=== PATIENT | male | born 1960 | race Caucasian/White ===

== ENCOUNTER → 2020-04-06 | Outpatient (CLI) | payer OTHER ==
--- NOTE | 2020-04-06 09:46 | US ---
EXAMINATION TYPE: US kidneys/renal and bladder DATE OF EXAM: 04/06/2020 COMPARISON: NONE CLINICAL HISTORY: 60-year-old male R30.0 Dysuria R33.9 Urinary retention. Dysuria, retention of urine TECHNIQUE: Multiple sonographic images of the kidneys and bladder are obtained. FINDINGS: EXAM MEASUREMENTS: Right Kidney: 11.8 x 4.9 x 4.9 cm without hydronephrosis. Left Kidney: 11.2 x 6.5 x 4.7 cm with mild pelviectasis versus an extrarenal pelvis. No gross abnormality of the partially distended bladder. Neither ureteral jet is seen during the cour se of the exam. Post Void Residual Volume: 11.0 mL IMPRESSION: Mild pelviectasis versus an extrarenal pelvis on the left. No tanesha hydronephrosis. Increased postvoid bladder volume of 11 mL falls within acceptable limits.
== END | disposition home or self-care (01) ==
LOC: RADUSWWP 07:29
PROVIDERS: ATTEND Family Medicine
DX: R30.0 Dysuria (principal); R33.9 Retention of urine, unspecified
CPT/HCPCS: 76770

== ENCOUNTER → 2020-05-24 | Day surgery (SDC) | payer OTHER ==
[2020-05-22 09:24] VITALS: BMI 42.0
[~2020-05-24] MED LIST: GLUCAGON 1 MG/ML VIAL ONE; LACTATED RINGERS 1,000 ML IV SCH; PROPOFOL 10 MG/ML 20 ML VIAL IV ONE
[2020-05-24 07:49] VITALS: TEMP 97.2
--- NOTE | 2020-05-24 08:16 | P.GSHP ---
History of Present Illness H&P Date: 05/24/20 Chief Complaint: GI bleed This a 60-year-old male who presents today for colonoscopy. Patient is issue GI bleed. Past Medical History Past Medical History: Hypertension History of Any Multi-Drug Resistant Organisms: None Reported Past Surgical History: No Surgical Hx Reported Past Anesthesia/Blood Transfusion Reactions: No Reported Reaction Additional Past Anesthesia/Blood Transfusion Reaction / Comment(s): FIRST ANESTHETIC Smoking Status: Current every day smoker - Past Family History Mother Family Medical History: No Reported History Medications and Allergies Home Medications Medication Instructions Recorded Confirmed Type Losartan [Cozaar] 50 mg PO DAILY 05/22/20 05/24/20 History Allergies Allergy/AdvReac Type Severity Reaction Status Date / Time No Known Allergies Allergy Verified 05/24/20 07:49 Surgical - Exam Vital Signs Temp Pulse Resp BP Pulse Ox 97.2 F L 108 H 20 151/81 96 05/24/20 07:46 05/24/20 07:46 05/24/20 07:46 05/24/20 07:46 05/24/20 07:46 - General well developed, well nourished, no distress - Eyes PERRL - ENT normal pinna - Neck no masses - Respiratory normal expansion - Cardiovascular Rhythm: regular - Abdomen Abdomen: soft, non tender Assessment and Plan Assessment: GI bleed. We'll perform colonoscopy.
--- NOTE | 2020-05-24 08:34 | P.OP ---
Date of Procedure: 05/24/20 Preoperative Diagnosis: GI bleed Postoperative Diagnosis: Colonic polyps Procedure(s) Performed: Colonoscopy Anesthesia: MAC Surgeon: Bobo Pruitt Pathology: other (, Polyps, colon biopsy) Condition: stable Disposition: PACU Description of Procedure: The patient's placed on the endoscopy table lateral position. He received IV sedation. Digital rectal exam was performed which revealed a few external hemorrhoids. Flexible colonoscope was then placed patient anus and passed throughout the entire colon. The ileocecal valve lesions. The scope was withdrawn. The cecum, ascending and transverse colon appeared normal. In the descending colon was a few scattered diverticula. At the 50 cm sammy there was a polyp was removed with the snare. Scope was withdrawn and then another polyp seen at 35 cm sammy which was withdrawn with the snare. The mucosa appeared inflamed and a biopsy the cold forcep was performed. The scope was withdrawn and another polyp was seen at the 30 cm sammy. Scope removed with snare. Scope was brought back the rectum and this appeared normal. Scope was brought patie nt.
[2020-05-24 08:55] VITALS: BP 120/65; PULSE 95; RESP 16
== END | disposition hospice, home (50) ==
LOC: ORWHC2ENDO 07:18
PROVIDERS: ATTEND Surgery
DX: K63.5 Polyp of colon (principal); K63.89 Other specified diseases of intestine; K64.4 Residual hemorrhoidal skin tags; K57.31 Diverticulosis of large intestine without perforation or abscess with bleeding; K52.9 Noninfective gastroenteritis and colitis, unspecified; I10 Essential (primary) hypertension; F17.200 Nicotine dependence, unspecified, uncomplicated; Z79.899 Other long term (current) drug therapy
CPT/HCPCS: 88305; 45380; 45385; J1610; J2704

== ENCOUNTER 2021-05-30 08:40 | Day surgery (SDC) | payer OTHER ==
[2021-05-27 12:27] VITALS: BMI 39.9
[~2021-05-30 08:40] MED LIST changes: -GLUCAGON 1 MG/ML VIAL ONE; -PROPOFOL 10 MG/ML 20 ML VIAL IV ONE
[2021-05-30 09:07] VITALS: RESP 16; TEMP 97.9
[2021-05-30] MEDS ORDERED: LIDOCAINE 1% INJ 10MG/ML (20 ML MDV) ONE (10:13)
[2021-05-30] MEDS ORDERED: PROPOFOL 10 MG/ML 20 ML VIAL IV ONE (10:13)
--- NOTE | 2021-05-30 10:27 | P.GSHP ---
History of Present Illness H&P Date: 05/30/21 Chief Complaint: History of colon polyps Is a 5-year-old male with previous history of colon polyps. Patient presents today for colonoscopy. Past Medical History Past Medical History: Hypertension History of Any Multi-Drug Resistant Organisms: None Reported Past Surgical History: No Surgical Hx Reported Additional Past Surgical History / Comment(s): colonoscopy Past Anesthesia/Blood Transfusion Reactions: No Reported Reaction Additional Past Anesthesia/Blood Transfusion Reaction / Comment(s): FIRST ANEST HETIC Past Psychological History: No Psychological Hx Reported Smoking Status: Current every day smoker Past Alcohol Use History: Occasional Additional Past Alcohol Use History / Comment(s): DRINKS 4 DRINKS a day 5 DAYS A WEEK Past Drug Use History: None Reported - Past Family History Mother Family Medical History: No Reported History Medications and Allergies Home Medications Medication Instructions Recorded Confirmed Type Losartan [Cozaar] 50 mg PO DAILY 05/22/20 05/30/21 History Allergies Allergy/AdvReac Type Severity Reaction Status Date / Time No Known Allergies Allergy Verified 05/27/21 12:08 Surgical - Exam Vital Signs Temp Pulse Resp BP Pulse Ox 97.9 F 98 16 186/88 97 05/30/21 09:06 05/30/21 09:06 05/30/21 09:06 05/30/21 09:06 05/30/21 09:06 - General well developed, well nourished, no distress - Eyes PERRL - ENT normal pinna - Neck no masses - Respiratory normal expansion - Cardiovascular Rhythm: regular - Abdomen Abdomen: soft, non tender Assessment and Plan Assessment: History of colon polyps. Colonoscopy.
--- NOTE | 2021-05-30 10:43 | P.OP ---
Date of Procedure: 05/30/21 Preoperative Diagnosis: History of colon polyps Postoperative Diagnosis: Transverse colon polyp Procedure(s) Performed: Colonoscopy Anesthesia: MAC Surgeon: Bobo Pruitt Pathology: other (Transverse colon polyp) Condition: stable Disposition: PACU Description of Procedure: Patient's placed on the endoscopy table in the lateral position. He received IV 6. Digital rectal exam was performed which revealed no abnormalities. The flexible colonoscope was then placed patient anus and passed throughout the entire colon. The patient a large amount liquid stool in the right colon which limited the view of the mucosa. There were no large polyps seen. Scope was brought back the transverse colon and a small sessile polyp was removed with a cold forcep. The remaining tracts colon appeared normal. The descending and; had a few scattered diverticuli. Scope was back the rectum and this appeared normal. Scope was withdrawn for patient.
[2021-05-30 11:00] VITALS: BP 123/78; PULSE 76
== END 2021-05-30 11:24 | disposition home or self-care (01) ==
LOC: ORWHC2ENDO 08:40
PROVIDERS: ATTEND Surgery
DX: D12.3 Benign neoplasm of transverse colon (principal); F17.200 Nicotine dependence, unspecified, uncomplicated; I10 Essential (primary) hypertension; E66.01 Morbid (severe) obesity due to excess calories; K57.30 Diverticulosis of large intestine without perforation or abscess without bleeding; Z86.010 Personal history of colon polyps; Z79.899 Other long term (current) drug therapy
CPT/HCPCS: 45380; 88305; J2001; J2704

== ENCOUNTER → 2021-06-11 | Outpatient (CLI) | payer OTHER ==
--- NOTE | 2021-06-11 08:04 | CTL ---
EXAMINATION TYPE: CT Low Dose Lung DATE OF EXAM ORDERED: 06/11/2021 COMPARISON: None HISTORY: . Low Dose CT Lung Screening CT DLP: 140.[address] CTDI: 4.0 mGy IV CONTRAST USED: None. SCREENING VISIT: First visit COMPARISON: None. TECHNIQUE: Low dose computed tomography scan was performed through the chest at 1 millimeter thick se ctions and reconstructed images in the coronal plane at [address] DIAGNOSTIC QUALITY: Satisfactory FINDINGS: LUNG NODULES: Not presentLeft lung: no nodules identified.Right lung: no nodules identified. LUNGS: COPD: Severity: None Fibrosis: Severity:None Lymph nodes: None Other findings: None RIGHT PLEURAL SPACE: Effusion: None Calcification: Yes Thickening: None Pneumothorax: None LEFT PLEURAL SPACE: Effusion: None Calcification: Yes Thickening: None Pneumothorax: None HEART: Heart Size: Mildly enlarged Coronary calcification: Mild Pericardial effusion: None OTHER FINDINGS: Upper abdomen: No significant abnormality Bony thorax: Degenerative changes Supraclavicular region: No significant abnormalityOther: No significant abnormalityI IMPRESSION: No significant pulmonary nodule identified. Calcified pleural plaques suspicious for asbe stos-related pleural disease. FOLLOW UP CT CHEST RECOMMENDATION: Follow-up screening in one year CT LUNG RAD: LUNG RAD CATEGORY 1 negative
== END | disposition home or self-care (01) ==
LOC: RADCTMAIN 06:46
PROVIDERS: ATTEND Family Medicine
DX: Z12.2 Encounter for screening for malignant neoplasm of respiratory organs (principal)
CPT/HCPCS: 71271

== ENCOUNTER → 2022-02-24 | Outpatient (CLI) | payer OTHER ==
--- NOTE | 2022-02-24 09:57 | XR ---
EXAMINATION TYPE: XR thoracic spine 2V DATE OF EXAM: 02/24/2022 CLINICAL HISTORY: pain TECHNIQUE: Frontal, lateral, and swimmer's view of thoracic spine are obtained. COMPARISON: None. FINDINGS: Thoracic spine show satisfactory alignment without evidence of acute fracture or dislocatio n. Vertebral body heights are preserved. Degenerative disc space narrowing and spondylosis moderate in degree at all levels. Visualized ribs are unremarkable. IMPRESSION: No acute fracture or dislocation is seen in the thoracic spine. ICD 10 NO FRACTURE, INIT IAL EVALUATION
--- NOTE | 2022-02-24 10:08 | XR ---
EXAMINATION TYPE: XR lumbar spine 2 or 3V DATE OF EXAM: 02/24/2022 CLINICAL HISTORY: pain TECHNIQUE: Single view the pelvis is submitted. FINDINGS: No evidence for fracture, dislocation or bony lesion. Joint spaces are moderately to mult ilevel degenerative disc space narrowing with severe narrowing at L5-S1. Facet joint arthropathy.. S I joints appear symmetric. IMPRESSION: 1. No acute fracture or dislocation seen. ICD 10 NO FRACTURE, INITIAL EVALUATION
== END | disposition home or self-care (01) ==
LOC: RADXRYALE 09:23
PROVIDERS: ATTEND Nurse Practitioner
DX: M54.50 Low back pain, unspecified (principal); M54.6 Pain in thoracic spine
CPT/HCPCS: 72070; 72100

== ENCOUNTER 2022-04-03 07:54 | Day surgery (SDC) | payer OTHER ==
[2022-04-02 11:13] VITALS: BMI 39.9
[2022-04-03] MEDS ORDERED: LACTATED RINGERS 1,000 ML IV SCH (08:15)
[2022-04-03] MEDS ORDERED: LIDOCAINE 1% (10MG/ML) FOR IV START INTRADERMA PRN (08:15)
[2022-04-03] MEDS: LACTATED RINGERS 1,000 ML IV SCH ×2 (08:31→09:19)
[2022-04-03 08:33] VITALS: TEMP 97
[2022-04-03] MEDS ORDERED: PROPOFOL 10 MG/ML 20 ML VIAL IV ONE (09:22)
--- NOTE | 2022-04-03 09:27 | P.GSHP ---
History of Present Illness H&P Date: 04/03/22 Chief Complaint: History of colon polyps This is a 62-year-old male who presents today for colonoscopy. Patient has a history of colon polyps. Past Medical History Past Medical History: Hypertension Additional Past Medical History / Comment(s): Arthritis History of Any Multi-Drug Resistant Organisms: None Reported Past Surgical History: No Surgical Hx Reported Additional Past Surgical History / Comment(s): Prior colonoscopy Past Anesthesia/Blood Transfusion Reactions: No Reported Reaction Additional Past Anesthesia/Blood Transfusion Reaction / Comment(s): FIRST ANESTHETIC Smoking Status: Current every day smoker - Past Family History Mother Family Medical History: No Reported History Medications and Allergies Home Medications Medication Instructions Recorded Confirmed Type Losartan [Cozaar] 50 mg PO DAILY 05/22/20 04/03/22 History Allergies Allergy/AdvReac Type Severity Reaction Status Date / Time No Known Allergies Allergy Verified 04/03/22 08:29 Surgical - Exam Vital Signs Temp Pulse Resp BP Pulse Ox 97.0 F L 103 H 18 126/80 93 L 04/03/22 08:27 04/03/22 08:27 04/03/22 08:27 04/03/22 08:27 04/03/22 08:27 - General well developed, well nourished, no distress - Eyes PERRL - ENT normal pinna - Neck no masses - Respiratory normal expansion - Cardiovascular Rhythm: regular - Abdomen Abdomen: soft, non tender Assessment and Plan Assessment: History of colon polyps. We'll perform colonoscopy
--- NOTE | 2022-04-03 09:41 | P.OP ---
Date of Procedure: 04/03/22 Preoperative Diagnosis: History of colon polyps Postoperative Diagnosis: Sigmoid colon polyp Procedure(s) Performed: Colonoscopy Anesthesia: MAC Surgeon: Bobo Pruitt Pathology: other (Sigmoid colon polyp) Condition: stable Disposition: PACU Description of Procedure: The patient was placed on the endoscopy table in the lateral position. He received IV sedation. Digital rectal exam was performed. This revealed no ebonized. Flexible colonoscope was then placed patient anus and passed throughout the entire colon. The ileocecal valve was visualized. The cecum, ascending and transverse colon appeared normal. There was a few scattered diverticuli seen in the descending and sigmoid colon. In the; there is a small polyp seen was removed with the cold forcep. Scope brought back the rectum this appeared normal. Scope withdrawn for patient.
[2022-04-03 09:51] VITALS: RESP 16
[2022-04-03 10:05] VITALS: BP 103/72; PULSE 102
== END 2022-04-03 10:14 | disposition home or self-care (01) ==
LOC: ORWHC2ENDO 07:54
PROVIDERS: ATTEND Surgery
DX: K63.5 Polyp of colon (principal); K57.30 Diverticulosis of large intestine without perforation or abscess without bleeding; Z86.010 Personal history of colon polyps; I10 Essential (primary) hypertension; F17.200 Nicotine dependence, unspecified, uncomplicated; F10.10 Alcohol abuse, uncomplicated; Y90.9 Presence of alcohol in blood, level not specified; Z79.899 Other long term (current) drug therapy; M19.90 Unspecified osteoarthritis, unspecified site
CPT/HCPCS: 88305; 45380; J2704

== ENCOUNTER → 2024-09-01 | Outpatient (CLI) | payer MEDICARE, OTHER ==
--- NOTE | 2024-09-01 10:28 | CA ---
Transthoracic Echo Report Name: Sumeet Lawson Age: 64 Gender: M : 1960 Exam Date: 09/01/2024 08:36 Exam Location: [place] [facility] Ht (in): 67 Wt (lb): 290 Ordering Physician: Cristina Goyal DO Attending/Referring Phys: Plan Rep Phuong Ortega RDCS Procedure CPT: Indications: R60.0 LOCALIZED EDEMA Cardiac Hx: Technical Quality: Poor Contrast 1: Total Dose (mL): Contrast 2: Total Dose (mL): MEASUREMENTS (Male / Female) Normal Values 2D ECHO LV Diastolic Diameter PLAX 4.5 cm 4.2 - 5.9 / 3.9 - 5.3 cm LV Systolic Diameter PLAX 3.5 cm IVS Diastolic Thickness 1.8 cm 0.6 - 1.0 / 0.6 - 0.9 cm LVPW Diastolic Thickness 1.8 cm 0.6 - 1.0 / 0.6 - 0.9 cm LV Relative Wall Thickness 0.8 RV Internal Dim ED PLAX 4.1 cm LA Systolic Diameter LX 3.9 cm 3.0 - 4.0 / 2.7 - 3.8 cm LV Diastolic Volume MOD BP 107.8 cm??? 67 - 155 / 56 - 104 cm??? LV Systolic Volume MOD BP 44.4 cm??? 22 - 58 / 19 - 49 cm??? LV Ejection Fraction MOD BP 58.8 % >= 55 % LV Cardiac Index MOD BP 2321.6 cm???/min???m??? LV Diastolic Volume MOD 4C 107.8 cm??? LV Systolic Volume MOD 4C 50.7 cm??? LV Ejection Fraction MOD 4C 53.0 % LV Cardiac Index MOD 4C 2092.4 cm???/min???m??? LV Diastolic Length 4C 7.8 cm LV Systolic Length 4C 6.6 cm LV Diastolic Volume MOD 2C 103.6 cm??? LV Systolic Volume MOD 2C 39.1 cm??? LV Ejection Fraction MOD 2C 62.2 % LV Cardiac Index MOD 2C 2362.0 cm???/min???m??? LV Diastolic Length 2C 8.5 cm LV Systolic Length 2C 6.7 cm LA Volume 45.2 cm??? 18 - 58 / 22 - 52 cm??? LA Volume Index 17.6 cm???/m??? 16 - 28 cm???/m??? M-MODE Aortic Root Diameter MM 3.8 cm AV Cusp Separation MM 2.9 cm DOPPLER AV Peak Velocity 169.8 cm/s AV Peak Gradient 11.5 mmHg MV Area PHT 4.1 cm??? Mitral E Point Velocity 79.3 cm/s Mitral A Point Velocity 89.0 cm/s Mitral E to A Ratio 0.9 MV Deceleration Time 183.5 ms MV E' Velocity 9.0 cm/s Mitral E to MV E' Ratio 8.8 TR Peak Velocity 251.8 cm/s TR Peak Gradient 25.4 mmHg Right Ventricular Systolic Press 30.4 mmHg FINDINGS Left Ventricle Left ventricular ejection fraction is estimated at 55-60 %. Left ventricular cavity size normal. Severe concentric left ventricular hypertrophy. No obvious regional wall motion abnormalities. Right Ventricle Severe right ventricular dilatation. Right ventricular systolic pressure within normal limits. Right Atrium Normal right atrial size. No right atrial thrombus or mass seen. Left Atrium Normal left atrial size. No left atrial thrombus or mass present. Mitral Valve Structurally normal mitral valve. No mitral stenosis, regurgitation or prolapse. Aortic Valve Trileaflet aortic valve. No aortic valve stenosis or regurgitation. Tricuspid Valve Structurally normal tricuspid valve. Mild tricuspid regurgitation. Pulmonic Valve Structurally normal pulmonic valve. No pulmonic regurgitation. Pericardium No pericardial or pleural effusion. Aorta Mild aortic dilatation at the level of the sinuses of valsalva 38 mm CONCLUSIONS Normal LV systolic function Mild dilated dictation of the aortic root Previewed by: Dr. Bhavin Hopkins MD (Electronically Signed) Final Date: 01 September 2024 10:27
== END | disposition home or self-care (01) ==
LOC: RADECHMAIN 08:08
PROVIDERS: ATTEND Family Medicine
DX: R60.0 Localized edema (principal); I07.1 Rheumatic tricuspid insufficiency
CPT/HCPCS: 93306